=== PATIENT | male | born 1995 | race Caucasian/White ===

== ENCOUNTER 2020-02-11 13:26 | Emergency (ER) | payer SELFPAY ==
--- NOTE | 2020-02-11 14:38 | NUR ---
PT [facility]. WAS NEVER SEEN BY [facility].
== END 2020-02-11 14:38 | disposition left against medical advice (07) ==
LOC: MED 13:26
DX: M79.643 Pain in unspecified hand (principal); Z53.21 Procedure and treatment not carried out due to patient leaving prior to being seen by health care provider